=== PATIENT | female | born 1995 | race Caucasian/White ===

== ENCOUNTER 2020-11-27 20:51 | Emergency (ER) | payer BC ==
[2020-11-27 21:25] VITALS: TEMP 98.1; BMI 38.0
[2020-11-27 22:25] LABS: BASO % 0.5 % (0-2.0); EOS % 0.4 % (0-4.5); HEMATOCRIT 36.6 % (32.4-45.2); LYMPH % 12.4 % (8-40); MCH 27.7 pg (25.7-33.7); MCHC 32.7 g/dl (32.0-36.0); MEAN CELL VOLUME 84.8 fl (80-96); MEAN PLT VOLUME 9.4 fl (7.5-11.1); MONO % 4.9 % (3.8-10.2); NEUT % 81.8 % (42.8-82.8); PLATELET COUNT 258 10^3/uL (134-434); RBC 4.31 M/mm3 (3.60-5.2); RDW 13.8 % (11.6-15.6); WHITE BLOOD COUNT 17.9 K/mm3 (4.0-10.0)
[2020-11-27] MEDS ORDERED: ACETAMINOPHEN 500 MG TABLET (FP) PO ONE (22:48)
[2020-11-27] MEDS ORDERED: ACETAMINOPHEN 500 MG TABLET (FP) ONE (22:59)
[2020-11-27 23:01] LABS: PH,URINE 5.5 (5.0-8.0); URINE APPEARANCE Clear; URINE BILIRUBIN Negative (NEGATIVE); URINE COLOR Yellow; URINE GLUCOSE (UA) Negative (NEGATIVE); URINE KETONE Trace (NEGATIVE); URINE LEUK ESTERASE Negative (NEGATIVE); URINE NITRITE Negative (NEGATIVE); URINE PROTEIN Negative (NEGATIVE); URINE UROBILINOGEN 0.2 mg/dL (0.2-1.0)
[2020-11-27 23:10] LABS: URINE BACTERIA FEW /hpf (NEGATIVE); URINE WBC 0-3 (NEGATIVE)
[2020-11-27 23:14] VITALS: BP 160/90; PULSE 84
[2020-11-27 23:46] LABS: BLOOD UREA NITROGEN 13.1 mg/dL (7-18); CALCIUM 8.8 mg/dL (8.5-10.1)
[2020-11-27 23:47] LABS: ALBUMIN 3.8 g/dl (3.4-5.0)
[2020-11-27 23:49] LABS: CREATININE 0.8 mg/dL (0.55-1.3)
[2020-11-27 23:52] LABS: TOT PROT 7.5 g/dl (6.4-8.2)
[2020-11-28 00:02] LABS: BILIRUBIN,TOTAL 0.4 mg/dL (0.2-1)
[2020-11-28 01:47] LABS: HEMATOCRIT 36.2 % (32.4-45.2); HEMOGLOBIN 12.1 GM/dL (10.7-15.3); MCHC 33.3 g/dl (32.0-36.0); MEAN CELL VOLUME 84.1 fl (80-96); MEAN PLT VOLUME 9.4 fl (7.5-11.1); PLATELET COUNT 252 10^3/uL (134-434); RBC 4.31 M/mm3 (3.60-5.2)
== END 2020-11-28 02:19 | disposition home or self-care (01) ==
LOC: JER 20:51
DX: O20.0 Threatened abortion (principal)
CPT/HCPCS: 36415; 76817-TC; 80053; 81003; 83690; 84702; 85025; 85027; 86850; 86900; 86901; 87491; 87591; 99284-25